=== PATIENT | female | born 1955 | race Caucasian/White ===

== ENCOUNTER 2020-03-30 12:13 | Emergency (ER) | payer SELFPAY ==
[2020-03-30 12:39] VITALS: TEMP 97; BMI 26.8
[2020-03-30] MEDS ORDERED: ONDANSETRON *ODT* 4 MG TABLET SL ONE (14:48)
[2020-03-30] MEDS ORDERED: ACETAMINOPHEN 500 MG TABLET (FP) PO ONE (14:48)
[2020-03-30] MEDS ORDERED: ACETAMINOPHEN 325 MG TABLET (FP) ONE (15:15)
[2020-03-30] MEDS ORDERED: ONDANSETRON *ODT* 4 MG TABLET ONE (15:16)
[2020-03-30 15:27] LABS: URINE APPEARANCE CLEAR; URINE BILIRUBIN NEGATIVE (NEGATIVE); URINE COLOR YELLOW; URINE GLUCOSE (UA) 3+ (NEGATIVE); URINE KETONE 2+ (NEGATIVE); URINE LEUK ESTERASE NEGATIVE (NEGATIVE); URINE NITRITE NEGATIVE (NEGATIVE); URINE PROTEIN NEGATIVE (NEGATIVE); URINE UROBILINOGEN 0.2 mg/dL (0.2-1.0)
[2020-03-30] MEDS ORDERED: SODIUM CHLORIDE 1,000 ML IV STA (15:41)
[2020-03-30 16:03] LABS: BASO % 1.4 % (0-2.0); EOS % 1.8 % (0-4.5); HEMATOCRIT 42.7 % (32.4-45.2); HEMOGLOBIN 14.4 GM/dL (10.7-15.3); LYMPH % 30.4 % (8-40); MCH 29.5 pg (25.7-33.7); MCHC 33.7 g/dl (32.0-36.0); MEAN CELL VOLUME 87.6 fl (80-96); MEAN PLT VOLUME 8.2 fl (7.5-11.1); MONO % 7.8 % (3.8-10.2); NEUT % 58.6 % (42.8-82.8); PLATELET COUNT 280 K/MM3 (134-434); RBC 4.87 M/mm3 (3.60-5.2); RDW 13.2 % (11.6-15.6); WHITE BLOOD COUNT 7.8 K/mm3 (4.0-10.0)
[2020-03-30 16:45] LABS: POTASSIUM 4.4 mmol/L (3.5-5.1)
[2020-03-30 16:48] LABS: ALBUMIN 3.8 g/dl (3.4-5.0); BLOOD UREA NITROGEN 13.4 mg/dL (7-18); CALCIUM 9.3 mg/dL (8.5-10.1)
[2020-03-30 16:51] LABS: CREATININE 0.6 mg/dL (0.55-1.3)
[2020-03-30 16:53] LABS: BILIRUBIN,TOTAL 0.6 mg/dL (0.2-1); TOT PROT 7.4 g/dl (6.4-8.2)
[2020-03-30] MEDS ORDERED: KETOROLAC TROMETHAMINE 30 MG/1 ML VIAL IVPUSH ONE (17:09)
[2020-03-30] MEDS ORDERED: KETOROLAC TROMETHAMINE 30 MG/1 ML VIAL ONE (17:15)
[2020-03-30] MEDS ORDERED: LIDOCAINE 5% TOPICAL PATCH TP ONE (18:18)
[2020-03-30] MEDS ORDERED: LIDOCAINE 5% TOPICAL PATCH ONE (18:33)
[2020-03-30 18:43] VITALS: BP 125/76; PULSE 84
[2020-03-30] MEDS ORDERED: LIDOCAINE PATCH REMOVAL MC SCH (22:00)
== END 2020-03-30 18:43 | disposition home or self-care (01) ==
LOC: JER 12:13
PROC: 3E0233Z Introduction of Anti-inflammatory into Muscle, Percutaneous Approach (ICD-10-PCS; principal; 2020-03-30)
PROC: 3E0337Z Introduction of Electrolytic and Water Balance Substance into Peripheral Vein, Percutaneous Approach (ICD-10-PCS; 2020-03-30)
DX: R10.9 Unspecified abdominal pain (principal); E11.65 Type 2 diabetes mellitus with hyperglycemia; M54.5 Low back pain
CPT/HCPCS: 36415; 80053; 81003; 83690; 85025; 87086; 99285-25; Q0162